=== PATIENT | male | born 1995 | race Caucasian/White ===

== ENCOUNTER 2016-11-30 16:10 | Emergency (ER) | payer OTHER ==
[~2016-11-30] VITALS: Ht 180.3 cm; Wt 100.0 kg
--- NOTE | 2016-11-30 16:22 | ED.REPORT ---
HPI-Extremity Problem Lower Date of Service Nov 30, 2016 ED Provider: Carlos Simon MD Pt is a 20 y.o. male who presents to the ED via EMS with a left foot injury onset prior to arrival. Pt was clearing brush with a chainsaw when it slipped and landed on top of his left foot, it cut through his leather boot and sock into the top of his foot. Per EMS after cutting off pt's boot and sock pt had minimal bleeding and the sensation in his left foot was intact. Pt is unsure of last tetanus shot. He states his last PO intake was around 1230 today. Nursing Notes Stated Complaint: CHAINSAW CUT ON FOOT Chief Complaint: Extremity Trauma Nursing Notes Reviewed: Yes Allergies: Coded Allergies: No Known Allergies (Unverified , 11/30/16) General Time Seen by MD: 16:21 Chief Complaint Foot injury left Hx Obtained From: Patient Arrived By: Ambulance Onset Occurred: Just prior to arrival Symptom Duration: Since onset Caused by: Accidental Context: Occurred at: Home injury Location: : Foot left Quality: Painful Severity: Current: Severe Similar Sx Previous: No Past Medical History Past Medical History Denies Past Surgical History None reported Ambulatory Status Independent Review of Systems Musculoskeletal: Reports: Extremity pain (Left foot) Complete sys rev & neg: except as marked. Physical Exam Initial Vital Signs Vital Signs (First) Date Time Temp Pulse Resp B/P Pulse Ox O2 Delivery O2 Flow Rate FiO2 11/30/16 16:24 36.3 79 20 104/62 100 Room Air Initial VS: Reviewed Head / Eyes: Atraumatic, Normocephalic, PERRL Abdomen / GI: No distention Upper Extremities: Vascular intact, Neuro intact Skin: Warm, Dry, No cyanosis Neurologic: Alert, Oriented, Nonfocal Psychiatric: Mood/affect normal, Behavior normal, Normal thought content Lower Extremity / Pelvis / MS: Atraumatic, Inspection NL, Neurologic intact, Vascular intact Ankle / Foot: Neurologic intact, Vascular intact Left Foot: Positive: Tenderness present... Trauma / Burn / Environmental: Positive: Laceration 5cm widened gaping laceration to dorsum of left foot over 1-3rd rays. Contamination evident. No active bleeding at present. Good extension of left foot, EHL intact. General/Constitutional: Awake, Alert, Well appearing, Well developed, Well hydrated, Well nourished, Not toxic appearing Appearance / Presentation: Positive: Apparent trauma/injury, In pain Respiratory / Chest: Atraumatic, Breath sounds NL, Breath sounds = bilat, No respiratory distress Cardiovascular: Heart rate NL, Regular rhythm, Heart sounds NL, Cap refill not delayed, Peripheral circulation NL Interpretation & Diagnostics X-Ray Interpretation Xray Interpretation: IMPRESSION: No fracture. No osseous lesion. If there are persistent symptoms or clinical suspicion for pathology, then repeat radiographs or advanced imaging (CT, MRI or bone scan) should be considered for further evaluation. Dictated by: Yeni Alcantara MD, PhD on 11/30/2016 at 16:54 Approved by: Yeni Alcantara MD, PhD on 11/30/2016 at 16:55 Study Performed: PROCEDURE: X-RAY LEFT FOOT COMPLETE, MINIMUM THREE VIEWS ([id number]) X-Ray Ordered: Foot left Interpretation: Normal exam Procedures Laceration Management Laceration Management: Deep wound to the dorsum of the left foot, there was minimal contamination of the wound surface. Prepped with Betadine and irrigated copiously with saline with the use of suction and scrupulously cleaned. Hemostasis was good, I could see a couple of exposed tendons appeared to be third and second ray extensors however there was no damage to the tendons and he had full power of extension. Time: 17:57 Procedure Performed by: ED physician Consent / Setup / Site Prep: Informed consent provided, Consent from patient , Time-out performed, Hand hygiene observed, Stand sterile technique Location of Wound: 5cm widened gaping laceration to dorsum of left foot over 1-3rd rays. Wound Length: 5 cm Local Anesthesia: Lidocaine w epi 1% Wound Preparation: Normal saline Debridement: Yes Foreign Body Explore / Removal: Explored for foreign body Repair Skin: ___ O (4), Nylon Repair Subcutaneous: ___ O (3), Vicryl Post-Procedure / Complications: Antibiotic oint applied, Dressing applied, No complications, Condition improved, Tolerated procedure well, Patient stable Re-Eval/Medical Decision Source of Hx: Old records Re-Evaluation/Progress : Time of Eval: 17:56 Re-Evaluation/Progress Note: Pt rechecked. Laceration repaired. Counseled Regarding: Diagnosis, Lab results, Need for follow-up, When/why to return to ED Discharge & Departure Impression: Primary Impression: Contact with chainsaw as cause of accidental injury Additional Impression: Laceration of foot, left Encounter type: initial encounter Qualified Code: S91.312A - Laceration without foreign body, left foot, initial encounter Disposition: Home Discharge Condition All VS Reviewed: Yes Condition: Improved Patient Instructions: Laceration (ED) Additional Instructions: Thank you for entrusting us with your care today. Your imaging results were reassuring and there was no bony injury seen. You laceration was repaired with sutures, these will need to be removed in10 days. Return in 3 days for a wound check. You can return to the ED for suture removal or follow-up with your primary care provider. Keep the area clean and dry, apply antibiotic ointment daily. OK to wash with soap and water after 12 hours. Elevate foot when able, ibuprofen will help pain , for more severe pain may use hydrocodone/apap 1-2 every 4 hours. Take cephalexen 500mg 4 times a day for 5 days. We gave a tetanus shot today- good for 5-10 years. Return if the area becomes red, warm to the touch, you experience fever, increasing pain, loss of sensation, decreased range of motion, or any new or worsening symptoms. Nani Attestation Portions of this note were transcribed by Cherry Aquino. I, Dr. Simon personally performed the history, physical exam and medical decision-making; I reviewed and confirmed the accuracy of the information in the transcribed note. Signed by: Nani Porter, 11/30/16 and 1810 copies to: Kishor Martinez MD, Donald L MD Nov 30, 2016 16:22 CHERRY AQUINO Nov 30, 2016 16:29
[2016-11-30 16:24] VITALS: BP 104/62; PULSE 79; RESP 20; O2SAT 100
[2016-11-30] MEDS ORDERED: fentaNYL-PF 50 mCg/mL 2 mL Inj IVPUSH ONE (16:25)
[2016-11-30] MEDS ORDERED: TdaP Vaccine 0.5 mL Inj IM ONE (16:25)
--- NOTE | 2016-11-30 16:56 | DRSVH ---
PROCEDURE: X-RAY LEFT FOOT COMPLETE, MINIMUM THREE VIEWS ([id number]) INDICATIONS: chainsaw vs foot TECHNIQUE: 3 views of the foot were acquired. COMPARISON: None. FINDINGS: Bones: No fractures or dislocations. No suspicious bony lesions. Soft tissues: No tibiotalar joint effusion. Achilles tendon appears normal. IMPRESSION: No fracture. No osseous lesion. If there are persistent symptoms or clinical suspicion f or pathology, then repeat radiographs or advanced imaging (CT, MRI or bone scan) should be considered for further evaluation. Dictated by: Yeni Alcantara MD, PhD on 11/30/2016 at 16:54 Approved by: Yeni Alcantara MD, PhD on 11/30/2016 at 16:55
[2016-11-30] MEDS ORDERED: HYDROmorphone 1 mg/mL Inj IVPUSH PRN (17:10)
[2016-11-30] MEDS ORDERED: Lidocaine 1%/Epi 1:100,000 30 mL MDV ONE (17:39)
[2016-11-30] MEDS ORDERED: _HYDROcodone/APAP 5-325 mg Tablet PO PRN (18:50)
[2016-11-30 19:44] VITALS: BP 128/74; PULSE 99; RESP 16; O2SAT 98
[2016-11-30] MEDS ORDERED: _Cephalexin 500 mg Capsule PO SCH (21:30)
== END 2016-11-30 19:45 | disposition home or self-care (01) ==
LOC: EDUNIT# 16:10 → SED 16:10 → EDBD 16:10 → SED 19:45
DX: S91.312A Laceration without foreign body, left foot, initial encounter (principal); W29.3XXA Contact with powered garden and outdoor hand tools and machinery, initial encounter; Y93.89 Activity, other specified; Y92.009 Unspecified place in unspecified non-institutional (private) residence as the place of occurrence of the external cause; Y99.8 Other external cause status; Z23 Encounter for immunization
CPT/HCPCS: 12002; 73630; 90471; 90715; 96374; 96375; 99284; J1170; J3010